=== PATIENT | male | born 1945 | race Caucasian/White ===

== ENCOUNTER 2017-01-27 14:07 | Emergency (ER) | payer MEDICARE, OTHER ==
--- NOTE | 2017-01-27 14:35 | ERNOTE ---
Upper Extremity HPI - Narrative Date of Service: 01/27/17 - General Extremities Pain Location: hand: right Time Seen by Provider: 01/27/17 14:23 Source: patient, RN notes reviewed Exam Limitations: no limitations - Immun/Allergies/Home Medications Immunizations: IMMUNIZATION HX Immunizations Up to Date Yes History of Influenza Vaccine Yes Hx Pneumococcal Vaccination Yes Allergies/Adverse Reactions: Allergies Allergy/AdvReac Type Severity Reaction Status Date / Time No Known Allergies Allergy Verified 01/27/17 14:17 Home Medications: HOME MEDICATIONS Buspirone HCl 15 mg PO BID 11/28/13 [Last Taken Unknown] FLUoxetine HCL [Prozac] 40 mg PO BID 11/28/13 [Last Taken Unknown] Vitamin B Complex [B Complex] 1 each PO DAILY 11/28/13 [Last Taken Unknown] - History of Present Illness Narrative: Laceration to right palm - cut himself while replacing the glass in an old lantern. Unsure of when he last had a tetanus vaccination. Date (Duration): 01/27/17 Occurred: just prior to arrival Location of Incident: home Other Injuries: Reports: none Prior Treament: Denies: recently seen Review of Systems - Review of Systems Constitutional: Absent: recent illness, fever, chills EYE: Present: no symptoms reported ENT: Present: no symptoms reported Respiratory: Present: no symptoms reported Cardiology: Present: no symptoms reported Gastrointestinal/Abdominal: Present: no symptoms reported Genitourinary: Present: no symptoms reported Musculoskeletal: Absent: joint pain, joint swelling Skin: Absent: lesions, lumps, change in color Neurological: Absent: weakness, numbness, tingling Endocrine: Present: no symptoms reported Hematologic/Lymphatic: Absent: easy bruising, easy bleeding Psych: Present: no symptoms reported - Patient's Past Medical History Patient History - Medical: Anxiety Patient History - Cardiac/Respiratory: No pertinent hx Patient History - Cancer: No Hx of Cancer Patient History - Surgical Procedures: Appendectomy Patient History - Other: None - Social History Living Situations: home Abuse History: No History of abuse Psych History: Hx of Anxiety, Current tx/ever been on anti-depressants or anti- anxiety meds Smoking Status: Never smoker Alcohol Use: none Drug Use: none - Immunizations Immunizations Up to Date: Yes Hx Pneumococcal Vaccination: Yes History of Influenza Vaccine: Yes Physical Exam - Physical Exam General Appearance: Present: wd/wn, alert, no apparent distress Head Exam: Present: normal inspection Respiratory: Present: no respiratory distress, no accessory muscle use Cardiovascular/Chest: Present: normal peripheral pulses Peripheral Pulses: N=norm/S=strong/W=weak/B=bound/A=absent: Radial (R): Strong, Radial (L): Strong Extremity Exam: Present: normal range of motion, no edema Neurological Exam: Present: alert, oriented, normal mood/affect, no motor/ sensory deficits Skin Exam: Present: normal color, warm/dry, other - Right palm laceration ED Progress - Vital Signs Patient's Vital Signs:: I have reviewed the patient's vital signs. Vital Signs: Vital Signs 01/27/17 14:13 Temperature 35.9 C L Pulse Rate 109 H Respiratory 16 Rate Blood Pressure 142/88 O2 Sat by Pulse 96 Oximetry - Progress/Reassessment Chief Complaint: Laceration Progress:: Improved Procedures Right Volar Hand Length of Repair/Wound (cm): 2.5 Wound's Depth/Shape: into subcutaneous, irregular Wound Explored: clean, to base, in bloodless field, no foreign body Wound Intervention: irrigated w/saline, other - chlorhexidine prep Distal NVT: neuro/vasc intact, no tendon injury Wound Repaired With: sutures Suture Size/Type: 4-0, nylon Number of Sutures: 6 Layer Closure: Simple Wound Dressing: sterile dressing applied Complications: Pt jaydon procedure well Departure Clinical Impression: Laceration of right palm Qualifiers: Encounter type: initial encounter Qualified Code(s): S61.411A - Laceration without foreign body of right hand, initial encounter - Departure Disposition: Home Follow Up Needed Condition: Good Instructions: Sutured Wound Care, [id number] Additional Instructions: Keep dressing in place and dry for 24 hours You can then wash the wound gently with soap and water Apply antibiotic ointment and bandaid as needed Have sutures removed in 7 to 10 days
--- OUTSIDE RECORDS SUMMARY | 2017-01-27 14:49 | XMS REPORT | Summary of Care ---
:1945 Author Organization [facility] Care Team Providers Name Role Phone Percy Parrish Primary Care Physician Unavailable Encounter Date(s): 09/24/16 - 09/24/[address] [id number] Discharge Disposition: Discharged to Home or Self Care Attending Physician: Moises Bobby MD Admitting Physician: Moises Bobby MD Vital Signs No data available for this section Problem List Condition Effective Dates Status Health Status Informant History of kidney stone(Confirmed) Active Ureteral stone with Active hydronephrosis(Confirmed) Nephrolithiasis(Confirmed) Active Acute left flank pain(Confirmed) Active PTSD - Post-traumatic stress Active disorder(Confirmed) Allergies, Adverse Reactions, Alerts No Known Medication Allergies Medications busPIRone 15 mg oral tablet tab(s), Oral, BID, take two tablets twice a day, 0 Refill(s), Start Date: 13:43:00 CDT Special Instructions: take two tablets twice a day Start Date: 05/01/16 Stop Date: 09/24/16 Status: DiscontinuedDitropan 5 mg oral tablet 1 tab(s), Oral, q12hr, PRN bladder spasm, cramping, severe stent pain, If difficult to urinate with this medication discontinue, # 30 tab(s), 1 Refill(s) , Start Date: 09/24/16 18:58:00 CDT, Pharmacy:[place], [place] Special Instructions: If difficult to urinate with this medication discontinue Start Date: 09/24/16 Status: OrderedDitropan 5 mg oral tablet 1 tab(s), Oral, q12hr, PRN bladder spasm, cramping, severe stent pain, # 30 tab( s), 1 Refill(s) Start Date: 11/16/13 Stop Date: 03/23/16 Status: CompletedFlomax 0.4 mg oral capsule 1 cap(s), Oral, Daily, # 30 cap(s), 11 Refill(s), Start Date: 09/24/16 18:59:00 CDT, Pharmacy: [place], [place] Start Date: 09/24/16 Status: OrderedHYDROcodone-acetaminophen 5 mg-325 mg oral tablet 1 tab(s), Oral, q6hr, # 30 tab(s), 0 Refill(s), Start Date: 09/24/16 12:33:00 CDT, Pharmacy: [place], [place] Start Date: 09/24/16 Status: OrderedHYDROcodone-acetaminophen 5 mg-325 mg oral tablet 1 tab(s), Oral, q6hr, PRN for pain, # 15 tab(s), 0 Refill(s), called to pharmacy (Rx) Start Date: 12/05/13 Stop Date: 03/23/16 Status: CompletedhydrOXYzine hydrochloride 50 mg oral tablet 2 tab(s), Oral, BID, HS prn, 0 Refill(s), Start Date: 05/01/16 13:46:00 CDT Special Instructions: HS prn Start Date: 05/01/16 Status: OrderedKeflex 500 mg oral capsule 1 cap(s), Oral, TID, # 15 cap(s), 0 Refill(s), Start Date: 09/24/16 18:58:00 CDT , Pharmacy: [place], [place] Start Date: 09/24/16 Stop Date: 09/29/16 Status: OrderedLevaquin 500 mg oral tablet 1 tab(s), Oral, Daily, X 10 days, # 10 tab(s), 0 Refill(s) Start Date: 11/15/13 Stop Date: 11/25/13 Status: CompletedMiraLax oral powder for reconstitution 17 gm=, Oral, Daily, # 527 gm, 0 Refill(s), Start Date: 09/24/16 18:58:00 CDT, Pharmacy: [place], [place] Start Date: 09/24/16 Status: OrderedMiraLax oral powder for reconstitution 17 gm=, Oral, Daily, # 527 gm, 0 Refill(s) Start Date: 11/16/13 Stop Date: 03/23/16 Status: CompletedPercocet 5/325 tab(s), Oral, q6hr interval, 0 Refill(s) Start Date: 11/15/13 Stop Date: 03/23/16 Status: CompletedPercocet 5/325 oral tablet 1 tab(s), Oral, q6hr interval, # 30 tab(s), 0 Refill(s) Start Date: 11/16/13 Stop Date: 03/23/16 Status: Completedsimvastatin 40 mg oral tablet tab(s), Oral, HS, take one half of tablet at bedtime, 0 Refill(s), Start Date: 05/01/16 13:47:00 CDT Special Instructions: take one half of tablet at bedtime Start Date: 05/01/16 Status: OrderedtraMADol 50 mg oral tablet 1 tab(s), Oral, q4hr, PRN pain mild 1-3, # 30 tab(s), 0 Refill(s), Start Date: 09/24/16 18:58:00 CDT, Pharmacy: [place], [place] Start Date: 09/24/16 Status: Orderedvenlafaxine 75 mg oral tablet, extended release 3 tab(s), Oral, Daily, 0 Refill(s), Start Date: 05/01/16 13:44:00 CDT Start Date: 05/01/16 Status: OrderedVicodin 5 mg- 325 mg oral tablet 1 tab(s), Oral, q6hr, PRN for pain, 0 Refill(s) Start Date: 12/05/13 Stop Date: 12/05/13 Status: Discontinued Results No data available for this section Immunizations No data available for this section Procedures Procedure Date Related Diagnosis Body Site Cystoureteroscopy With Lithotripsy (Left)1 09/24/16 Colonoscopy2 05/01/16 Colonoscopy3 04/30/16 Cystoscopy - SN4 11/16/13 Appendectomy colonoscopy 1auto-populated from documented surgical [id number] from documented surgical [id number] from documented surgical [id number] from documented surgical case Social History No data available for this section Assessment and Plan No data available for this section
--- OUTSIDE RECORDS SUMMARY | 2017-01-27 14:50 | XMS REPORT | Summary of Care ---
:1945 Author Organization [facility] Address [address] [place] [address] Care Team Providers Name Role Phone Francois Percy Primary Care Physician Unavailable Encounter Date(s): 09/29/16 - 09/29/16 [facility] [address] [place] [id number] Discharge Diagnosis: Enlarged prostate without lower urinary tract symptoms ( luts) Discharge Diagnosis: Ureteral stone with hydronephrosis Discharge Diagnosis: Nephrolithiasis Discharge Disposition: Discharged to Home or Self Care Attending Physician: Moises Bobby MD Referring Physician: Moises Bobby MD Vital Signs Most recent to oldest [Reference Range]: 1 Temperature Temporal Artery [36.0-38.0 DegC] 36.8 DegC (09/29/16 2:05 PM) Peripheral Pulse Rate [60-100 bpm] 95 bpm (09/29/16 2:05 PM) Blood Pressure [90-130/60-90 mmHg] 136/81mmHg *HI* (09/29/16 2:05 PM) Mean Arterial Pressure, Cuff 99 mmHg (09/29/16 2:05 PM) Most recent to oldest [Reference Range]: 1 Weight Dosing 76.2 kg (09/29/16 2:05 PM) Problem List Condition Effective Dates Status Health Status Informant Ureteral stone with Active hydronephrosis(Confirmed) Nephrolithiasis(Confirmed) Active Enlarged prostate without lower Active urinary tract symptoms (luts)(Confirmed) PTSD - Post-traumatic stress Active disorder(Confirmed) Allergies, [...] Refill(s) , Start Date: 09/24/16 18:58:00 CDT, Pharmacy:[place], [place] Special Instructions: If difficult to urinate with this medication discontinue Start Date: 09/24/16 Stop Date: 09/29/16 Status: DiscontinuedDitropan 5 mg oral tablet 1 tab(s), Oral, q12hr, PRN bladder spasm, cramping, severe stent pain, # 30 tab( s), 1 Refill(s) Start Date: 11/16/13 Stop Date: 03/23/16 Status: CompletedFlomax 0.4 mg oral capsule 1 cap(s), Oral, Daily, # 30 cap(s), 11 Refill(s), Start Date: 09/24/16 18:59:00 CDT, Pharmacy: [place], [place] Start Date: 09/24/16 Status: OrderedHYDROcodone-acetaminophen 5 mg-325 mg oral tablet 1 tab(s), Oral, q6hr, # 30 tab(s), 0 Refill(s), Start Date: 09/24/16 12:33:00 CDT, Pharmacy: [place], [place] Start Date: 09/24/16 Stop Date: 09/29/16 Status: DiscontinuedHYDROcodone-acetaminophen 5 mg-325 mg oral tablet 1 tab(s), [...] Start Date: 09/24/16 18:58:00 CDT , Pharmacy: [place], [place] Start Date: 09/24/16 Stop Date: 09/29/16 Status: DiscontinuedLevaquin 500 mg oral tablet 1 tab(s), Oral, Daily, X 10 days, # 10 tab(s), 0 Refill(s) Start Date: 11/15/13 Stop Date: 11/25/13 Status: CompletedMiraLax oral powder for reconstitution 17 gm=, Oral, Daily, # 527 gm, 0 Refill(s), Start Date: 09/24/16 18:58:00 CDT, Pharmacy: [place], [place] Start Date: 09/24/16 Stop Date: 09/29/16 Status: DiscontinuedMiraLax oral powder for reconstitution 17 gm=, Oral, [...] Refill(s), Start Date: 09/24/16 18:58:00 CDT, Pharmacy: [place], [place] Start Date: 09/24/16 Stop Date: 09/29/16 Status: Discontinuedvenlafaxine 75 mg oral tablet, extended release 3 [...] 11/16/13 Appendectomy colonoscopy 1auto-populated from documented surgical [id number] from documented surgical [id number] from documented surgical [id number] from documented surgical case Social History No data available for this section Assessment and Plan No data available for this section
--- OUTSIDE RECORDS SUMMARY | 2017-01-27 14:50 | XMS REPORT | Summary of Care ---
:1945 Author Organization [facility] Care Team Providers Name Role Phone Percy Parrish Primary Care Physician Unavailable Encounter Date(s): 09/24/16 - 09/24/16 [place] [id number] Discharge Disposition: Discharged to Home or Self [...] Refill(s) , Start Date: 09/24/16 18:58:00 CDT, Pharmacy:[place], [place] Special Instructions: If difficult to urinate [...] Refill(s), Start Date: 09/24/16 18:59:00 CDT, Pharmacy: [place], [place] Start Date: 09/24/16 Status: OrderedHYDROcodone-acetaminophen 5 mg-325 mg oral tablet 1 tab(s), Oral, q6hr, # 30 tab(s), 0 Refill(s), Start Date: 09/24/16 12:33:00 CDT, Pharmacy: [place] Start Date: 09/24/16 Status: OrderedHYDROcodone-acetaminophen 5 [...] Start Date: 09/24/16 18:58:00 CDT , Pharmacy: [place] Start Date: 09/24/16 Stop Date: 09/29/16 Status: OrderedLevaquin 500 mg oral tablet 1 tab(s), Oral, Daily, X 10 days, # 10 tab(s), 0 Refill(s) Start Date: 11/15/13 Stop Date: 11/25/13 Status: CompletedMiraLax oral powder for reconstitution 17 gm=, Oral, Daily, # 527 gm, 0 Refill(s), Start Date: 09/24/16 18:58:00 CDT, Pharmacy: [place], [place] Start Date: 09/24/16 Status: OrderedMiraLax oral [...] Refill(s), Start Date: 09/24/16 18:58:00 CDT, Pharmacy: [place] Start Date: 09/24/16 Status: Orderedvenlafaxine 75 mg oral tablet, extended release 3 tab(s), Oral, Daily, 0 Refill(s), Start Date: 05/01/16 13:44:00 CDT Start Date: 05/01/16 Status: OrderedVicodin 5 mg- 325 mg oral tablet 1 tab(s), Oral, q6hr, PRN for pain, 0 Refill(s) Start Date: 12/05/13 Stop Date: 12/05/13 Status: Discontinued Results Patient Viewable Results Most recent to oldest [Reference Range]: 1 UA Color Yellow *NA* (09/24/16 12:46 PM) Urine Clarity Clear *NA* (09/24/16 12:46 PM) Specific [place] [1.000-1.060] 1.003 (09/24/16 12:46 PM) Urine pH [5-8] 6 (09/24/16 12:46 PM) Ketones Negative (09/24/16 12:46 PM) Bilirubin [Negative] Negative (09/24/16 12:46 PM) Urine Protein [Negative] Negative (09/24/16 12:46 PM) Glucose [Negative] Negative (09/24/16 12:46 PM) Urine HGB [Negative] 3+ *ABN* (09/24/16 12:46 PM) Urobilinogen <2.0 *NA* (09/24/16 12:46 PM) Nitrite [Negative] Negative (09/24/16 12:46 PM) Leuk Esterase [Negative] Negative (09/24/16 12:46 PM) UA Ascorbic Acid [Negative] Negative (09/24/16 12:46 PM) Urine WBC [0-5] 0-5 (09/24/16 12:46 PM) Urine RBC [0-2] 3-10 *ABN* (09/24/16 12:46 PM) Squamous Epi [0-5] None Seen (09/24/16 12:46 PM) Mucus Trace (09/24/16 12:46 PM) Immunizations No data available for this section Procedures Procedure Date Related Diagnosis Body Site Cystoureteroscopy With Lithotripsy (Left)1 09/24/16 Colonoscopy2 05/01/16 Colonoscopy3 04/30/16 Cystoscopy - SN4 11/16/13 Appendectomy colonoscopy 1auto-populated from documented surgical [id number] from documented surgical [id number] from documented surgical [id number] from documented surgical case Social History No data available for this section Assessment and Plan No data available for this section
--- OUTSIDE RECORDS SUMMARY | 2017-01-27 14:50 | XMS REPORT | Summary of Care ---
:1945 Author Organization [facility] Address [address] [place] [address] [address] [place] [address] Care Team Providers Name Role Phone Percy Parrish Primary Care Physician Unavailable Encounter Date(s): 11/02/16 - 11/02/16 [facility] [address] [place] [id number] Discharge Diagnosis: Encounter for screening for malignant neoplasm of prostate Discharge Diagnosis: Nephrolithiasis Discharge Diagnosis: Enlarged prostate without lower urinary tract symptoms ( luts) Discharge Disposition: 01 Discharged to Home or Self Care Attending Physician: Moises Bobby MD Referring Physician: Moises Bobby MD Vital Signs Most recent to oldest [Reference Range]: 1 Temperature Temporal Artery [36.0-38.0 DegC] 37.0 DegC (11/02/16 1:34 PM) Peripheral Pulse Rate [60-100 bpm] 88 bpm (11/02/16 1:34 PM) Blood Pressure [90-130/60-90 mmHg] 124/83mmHg (11/02/16 1:34 PM) Mean Arterial Pressure, Cuff 97 mmHg (11/02/16 1:34 PM) Most recent to oldest [Reference Range]: 1 Weight Dosing 74.5 kg (11/02/16 1:34 PM) Problem List Condition Effective Dates Status Health Status Informant Nephrolithiasis(Confirmed) Active Enlarged prostate without lower Active [...] Refill(s) , Start Date: 09/24/16 18:58:00 CDT, Pharmacy:[place], [place] Special Instructions: If difficult to urinate [...] Refill(s), Start Date: 09/24/16 18:59:00 CDT, Pharmacy: [place], [place] Start Date: 09/24/16 Stop Date: 11/02/16 Status: DiscontinuedHYDROcodone-acetaminophen 5 mg-325 mg oral tablet 1 tab(s), Oral, q6hr, # 30 tab(s), 0 Refill(s), Start Date: 09/24/16 12:33:00 CDT, Pharmacy: [place], [place] Start Date: 09/24/16 Stop Date: 09/29/16 [...] Start Date: 09/24/16 18:58:00 CDT , Pharmacy: [place] Start Date: 09/24/16 Stop Date: 09/29/16 Status: DiscontinuedLevaquin 500 mg oral tablet 1 tab(s), Oral, Daily, X 10 days, # 10 tab(s), 0 Refill(s) Start Date: 11/15/13 Stop Date: 11/25/13 Status: CompletedMiraLax oral powder for reconstitution 17 gm=, Oral, Daily, # 527 gm, 0 Refill(s), Start Date: 09/24/16 18:58:00 CDT, Pharmacy: [place], [place] Start Date: 09/24/16 Stop Date: 09/29/16 [...] Refill(s), Start Date: 09/24/16 18:58:00 CDT, Pharmacy: [place] Start Date: 09/24/16 Stop Date: 09/29/16 [...] 11/16/13 Appendectomy colonoscopy 1auto-populated from documented surgical [id number] from documented surgical [id number] from documented surgical [id number] from documented surgical case Social History No data available for this section Assessment and Plan No data available for this section
--- OUTSIDE RECORDS SUMMARY | 2017-01-27 14:50 | XMS REPORT | Summary of Care ---
:1945 Author Organization [facility] Address [address] [place] [address] Care Team Providers Name Role Phone Francois Percy Primary Care Physician Unavailable Encounter Date(s): 09/24/16 - 09/24/16 [facility] [address] [place] [id number] Discharge Diagnosis: Nephrolithiasis Discharge Diagnosis: Acute left flank pain Discharge Diagnosis: Ureteral stone with hydronephrosis Discharge Disposition: Discharged to Home or Self Care Attending Physician: Moises Bobby MD Referring Physician: Moises Bobby MD Vital Signs Most recent to oldest [Reference Range]: 1 Temperature Temporal Artery [36.0-38.0 DegC] 36.7 DegC (09/24/16 12:17 PM) Peripheral Pulse Rate [60-100 bpm] 87 bpm (09/24/16 12:17 PM) Blood Pressure [90-130/60-90 mmHg] 151/88mmHg *HI* (09/24/16 12:17 PM) Mean Arterial Pressure, Cuff 109 mmHg (09/24/16 12:17 PM) Most recent to oldest [Reference Range]: 1 Weight Dosing 79.0 kg (09/24/16 12:17 PM) Problem List Condition Effective Dates Status [...] Refill(s) , Start Date: 09/24/16 18:58:00 CDT, Pharmacy:[place], [place] Special Instructions: If difficult to urinate [...] Refill(s), Start Date: 09/24/16 18:59:00 CDT, Pharmacy: [place], [place] Start Date: 09/24/16 Status: OrderedHYDROcodone-acetaminophen 5 mg-325 mg oral tablet 1 tab(s), Oral, q6hr, # 30 tab(s), 0 Refill(s), Start Date: 09/24/16 12:33:00 CDT, Pharmacy: [place] Start Date: 09/24/16 Status: OrderedHYDROcodone-acetaminophen 5 [...] Start Date: 09/24/16 18:58:00 CDT , Pharmacy: [place] Start Date: 09/24/16 Stop Date: 09/29/16 Status: OrderedLevaquin 500 mg oral tablet 1 tab(s), Oral, Daily, X 10 days, # 10 tab(s), 0 Refill(s) Start Date: 11/15/13 Stop Date: 11/25/13 Status: CompletedMiraLax oral powder for reconstitution 17 gm=, Oral, Daily, # 527 gm, 0 Refill(s), Start Date: 09/24/16 18:58:00 CDT, Pharmacy: [place] Start Date: 09/24/16 Status: OrderedMiraLax oral [...] Refill(s), Start Date: 09/24/16 18:58:00 CDT, Pharmacy: [place] Start Date: 09/24/16 Status: Orderedvenlafaxine 75 [...] 11/16/13 Appendectomy colonoscopy 1auto-populated from documented surgical [id number] from documented surgical [id number] from documented surgical [id number] from documented surgical case Social History No data available for this section Assessment and Plan No data available for this section
--- OUTSIDE RECORDS SUMMARY | 2017-01-27 14:51 | XMS REPORT | Summary of Care ---
:1945 Author Organization [facility] Care Team Providers Name Role Phone Percy Parrihs Primary Care Physician Unavailable Encounter Date(s): 10/26/16 - 10/26/16 [place] [id number] Discharge Disposition: Discharged to Home or [...] Refill(s) , Start Date: 09/24/16 18:58:00 CDT, Pharmacy:[place], [place] Special Instructions: If difficult to urinate [...] Refill(s), Start Date: 09/24/16 18:59:00 CDT, Pharmacy: [place], [place] Start Date: 09/24/16 Status: OrderedHYDROcodone-acetaminophen 5 mg-325 mg oral tablet 1 tab(s), Oral, q6hr, # 30 tab(s), 0 Refill(s), Start Date: 09/24/16 12:33:00 CDT, Pharmacy: [place] Start Date: 09/24/16 Stop Date: 09/29/16 [...] Start Date: 09/24/16 18:58:00 CDT , Pharmacy: [place] Start Date: 09/24/16 Stop Date: 09/29/16 Status: DiscontinuedLevaquin 500 mg oral tablet 1 tab(s), Oral, Daily, X 10 days, # 10 tab(s), 0 Refill(s) Start Date: 11/15/13 Stop Date: 11/25/13 Status: CompletedMiraLax oral powder for reconstitution 17 gm=, Oral, Daily, # 527 gm, 0 Refill(s), Start Date: 09/24/16 18:58:00 CDT, Pharmacy: [place] Start Date: 09/24/16 Stop Date: 09/29/16 [...] Refill(s), Start Date: 09/24/16 18:58:00 CDT, Pharmacy: [place] Start Date: 09/24/16 Stop Date: 09/29/16 [...] Most recent to oldest [Reference Range]: 1 Creatinine Lvl [0.50-1.20 mg/dL] 1.16 mg/dL (10/26/16 1:36 PM) eGFR AA [>=60] >60 (10/26/16 1:36 PM) eGFR XIOMARA [>=60] >60 (10/26/16 1:36 PM) PSA Screen [0.0-4.0 ng/mL] 1.5 ng/mL (10/26/16 1:36 PM) Estimated Creatinine Clearance 56.47 mL/min (10/26/16 2:40 PM) UA Color Yellow *NA* (10/26/16 1:40 PM) Urine Clarity Clear *NA* (10/26/16 1:40 PM) Specific [place] [1.000-1.060] 1.009 (10/26/16 1:40 PM) Urine pH [5-8] 5 (10/26/16 1:40 PM) Ketones Negative (10/26/16 1:40 PM) Bilirubin [Negative] Negative (10/26/16 1:40 PM) Urine Protein [Negative] Negative (10/26/16 1:40 PM) Glucose [Negative] Negative (10/26/16 1:40 PM) Urine HGB [Negative] Negative (10/26/16 1:40 PM) Urobilinogen <2.0 *NA* (10/26/16 1:40 PM) Nitrite [Negative] Negative (10/26/16 1:40 PM) Leuk Esterase [Negative] Negative (10/26/16 1:40 PM) UA Ascorbic Acid [Negative] Negative (10/26/16 1:40 PM) Urine WBC [0-5] 0-5 (10/26/16 1:40 PM) Urine RBC [0-2] 0-2 (10/26/16 1:40 PM) Squamous Epi [0-5] 0-5 (10/26/16 1:40 PM) Mucus Trace (10/26/16 1:40 PM) Immunizations No data available for this section Procedures Procedure Date Related Diagnosis Body Site Cystoureteroscopy With Lithotripsy (Left)1 09/24/16 Colonoscopy2 05/01/16 Colonoscopy3 04/30/16 Cystoscopy - SN4 11/16/13 Appendectomy colonoscopy 1auto-populated from documented surgical [id number] from documented surgical [id number] from documented surgical [id number] from documented surgical case Social History No data available for this section Assessment and Plan No data available for this section
--- OUTSIDE RECORDS SUMMARY | 2017-01-27 14:51 | XMS REPORT | Summary of Care ---
:1945 Author Organization [facility] Care Team Providers Name Role Phone Francois Percy Primary Care Physician Unavailable Encounter Date(s): 09/24/16 - 09/24/16 [place] [id number] Discharge Disposition: Discharged to Home or Self Care Attending Physician: Moises Bobby MD Admitting Physician: Moises Bobby MD Vital Signs Most recent to oldest 1 2 3 [Reference Range]: Temperature Temporal Artery 36.3 DegC 36.6 DegC 36.9 DegC [36-38 DegC] (09/24/16 9:21 PM) (09/24/16 9:05 PM) (09/24/16 8:35 PM) Heart Rate Monitored [60-100 104 bpm 97 bpm 93 bpm bpm] *HI* (09/24/16 9:05 PM) (09/24/16 8:35 PM) (09/24/16 9:21 PM) Respiratory Rate [12-20 br/min] 16 br/min 16 br/min 16 br/min (09/24/16 9:21 PM) (09/24/16 9:05 PM) (09/24/16 8:35 PM) SpO2 [90-100 %] 90 % 96 % 96 % (09/24/16 9:21 PM) (09/24/16 9:05 PM) (09/24/16 8:35 PM) SpO2 Location Left hand Right hand Right hand (09/24/16 9:21 PM) (09/24/16 9:05 PM) (09/24/16 8:35 PM) Blood Pressure [90-130/60-90 141/74mmHg 151/79mmHg 133/69mmHg mmHg] *HI* *HI* *HI* (09/24/16 9:21 PM) (09/24/16 9:05 PM) (09/24/16 8:35 PM) Incentive Spirometry Completed Yes Yes Yes (09/24/16 9:21 PM) (09/24/16 9:05 PM) (09/24/16 8:35 PM) Most recent to oldest [Reference Range]: 1 2 3 Height/Length Measured 165.1 cm (09/24/16 4:01 PM) Height/Length Estimated 165.1 cm (09/24/16 4:01 PM) Weight Estimated 72.6 kg (09/24/16 4:01 PM) Weight Dosing 77.0 kg (09/24/16 4:01 PM) Weight Measured 77.0 kg (09/24/16 4:01 PM) BSA Measured 1.84 m2 (09/24/16 4:01 PM) BSA Estimated 1.82 m2 (09/24/16 4:01 PM) Body Mass Index Measured 28.25 kg/m2 (09/24/16 4:01 PM) Body Mass Index Estimated 26.63 kg/m2 (09/24/16 4:01 PM) Problem List Condition Effective Dates Status [...] Refill(s) , Start Date: 09/24/16 18:58:00 CDT, Pharmacy:[place], [place] Special Instructions: If difficult to urinate [...] Refill(s), Start Date: 09/24/16 18:59:00 CDT, Pharmacy: [place], [place] Start Date: 09/24/16 Status: OrderedHYDROcodone-acetaminophen 5 mg-325 mg oral tablet 1 tab(s), Oral, q6hr, # 30 tab(s), 0 Refill(s), Start Date: 09/24/16 12:33:00 CDT, Pharmacy: [place], [place] Start Date: 09/24/16 Status: OrderedHYDROcodone-acetaminophen 5 [...] Start Date: 09/24/16 18:58:00 CDT , Pharmacy: [place], [place] Start Date: 09/24/16 Stop Date: 09/29/16 Status: OrderedLevaquin 500 mg oral tablet 1 tab(s), Oral, Daily, X 10 days, # 10 tab(s), 0 Refill(s) Start Date: 11/15/13 Stop Date: 11/25/13 Status: CompletedMiraLax oral powder for reconstitution 17 gm=, Oral, Daily, # 527 gm, 0 Refill(s), Start Date: 09/24/16 18:58:00 CDT, Pharmacy: [place], [place] Start Date: 09/24/16 Status: OrderedMiraLax oral [...] Refill(s), Start Date: 09/24/16 18:58:00 CDT, Pharmacy: [place], [place] Start Date: 09/24/16 Status: Orderedvenlafaxine 75 mg oral tablet, extended release 3 tab(s), Oral, Daily, 0 Refill(s), Start Date: 05/01/16 13:44:00 CDT Start Date: 05/01/16 Status: OrderedVicodin 5 mg- 325 mg oral tablet 1 tab(s), Oral, q6hr, PRN for pain, 0 Refill(s) Start Date: 12/05/13 Stop Date: 12/05/13 Status: Discontinued Results Patient Viewable Results Most recent to oldest 1 2 3 [Reference Range]: AN - Fi O2 98 % % 95 % % 95 % % (09/24/16 6:50 PM) (09/24/16 6:45 PM) (09/24/16 6:40 PM) Immunizations No data available for this section Procedures Procedure Date Related Diagnosis Body Site Cystoureteroscopy With Lithotripsy (Left)1 09/24/16 Colonoscopy2 05/01/16 Colonoscopy3 04/30/16 Cystoscopy - SN4 11/16/13 Appendectomy colonoscopy 1auto-populated from documented surgical [id number] from documented surgical [id number] from documented surgical [id number] from documented surgical case Social History No data available for this section Assessment and Plan No data available for this section
[2017-01-27] MEDS ORDERED: DIPHTH,PERTUSS(ACELL),TET VAC 0.5 ML VIAL IM ONE ×2 (14:57→14:58)
[2017-01-27 15:11] VITALS: BP 138/85
== END 2017-01-27 15:08 | disposition home or self-care (01) ==
LOC: ER 14:07
PROC: 0JQJ0ZZ Repair Right Hand Subcutaneous Tissue and Fascia, Open Approach (ICD-10-PCS; principal; 2017-01-27)
DX: S61.411A Laceration without foreign body of right hand, initial encounter (principal); W25.XXXA Contact with sharp glass, initial encounter; Y93.89 Activity, other specified; Y92.009 Unspecified place in unspecified non-institutional (private) residence as the place of occurrence of the external cause; F41.9 Anxiety disorder, unspecified; Z23 Encounter for immunization